=== PATIENT | male | born 1980 | race Caucasian/White ===

== ENCOUNTER → 2019-03-01 | Outpatient (CLI) | payer OTHER ==
[~2019-03-01] MED LIST: ALBU90OI6 INH; CICL.77TC TOP; Flomax0.4 MG PO; HYDACE5 PO; IBUP800; NYST100TC TOP; Nyamyc15 GM; Percocet 10-321 EACH PO; SKIEMOTC TOP; SULTRIDS PO; TRAM50 PO
== END | disposition home or self-care (01) ==
LOC: LAB EV 11:30 → LAB SHORT 11:30
DX: R35.0 Frequency of micturition (principal)
CPT/HCPCS: 87086